=== PATIENT | male | born 1970 | race Caucasian/White ===

== ENCOUNTER 2019-04-05 16:23 | Emergency (ER) | payer BC, OTHER ==
[2019-04-05 16:29] VITALS: BP 170/97; PULSE 95; TEMP 98; BMI 31.3
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
== END 2019-04-05 17:20 | disposition home or self-care (01) ==
LOC: JERFT 16:23
DX: S09.93XA Unspecified injury of face, initial encounter (principal); Y35.811A Legal intervention involving manhandling, law enforcement official injured, initial encounter; Y93.89 Activity, other specified; Y92.89 Other specified places as the place of occurrence of the external cause; Y99.0 Civilian activity done for income or pay
CPT/HCPCS: 99281-25

== ENCOUNTER 2022-03-02 15:15 | Emergency (ER) | payer OTHER ==
[2022-03-02] MEDS ORDERED: IBUPROFEN 600 MG TABLET (FP) PO ONE ×2 (15:42→15:52)
[2022-03-02 15:52] VITALS: BP 136/89; PULSE 85; RESP 18; TEMP 98; BMI 28.1
[2022-03-02] MEDS ORDERED: AMOX TR/POT CLAV 875MG/125MG TABLETS (FP) PO ONE (15:59)
[2022-03-02] MEDS ORDERED: DIPHTH,PERTUSS(ACELL),TET 0.5 ML DISP.SYRIN IM ONE ×2 (15:59→16:01)
[2022-03-02] MEDS ORDERED: AMOX TR/POT CLAV 875MG/125MG TABLETS (FP) ONE (16:01)
== END 2022-03-02 16:10 | disposition home or self-care (01) ==
LOC: FER 15:15
PROC: 3E0234Z Introduction of Serum, Toxoid and Vaccine into Muscle, Percutaneous Approach (ICD-10-PCS; principal; 2022-03-02)
DX: S46.212A Strain of muscle, fascia and tendon of other parts of biceps, left arm, initial encounter (principal); X50.0XXA Overexertion from strenuous movement or load, initial encounter
CPT/HCPCS: 90715; 99284-25

== ENCOUNTER 2022-12-09 04:42 | Emergency (ER) | payer BC, OTHER ==
[2022-12-09 04:50] VITALS: TEMP 98.2; BMI 28.1
[2022-12-09] MEDS ORDERED: SODIUM CHLORIDE 0.9% 500 ML INFUS.BAG IV ONE (05:12)
[2022-12-09 05:57] LABS: BASO % 1.3 % (0-2.0); EOS % 8.7 % (0-4.5); HEMATOCRIT 52.9 % (35.4-49); HEMOGLOBIN 17.4 GM/dL (11.7-16.9); LYMPH % 24.1 % (8-40); MCH 29.7 pg (25.7-33.7); MCHC 32.9 g/dl (32.0-35.9); MEAN CELL VOLUME 90.2 fl (80-96); MEAN PLT VOLUME 9.9 fl (7.5-11.1); MONO % 12.8 % (3.8-10.2); NEUT % 53.1 % (42.8-82.8); PLATELET COUNT 253 10^3/uL (134-434); RBC 5.86 M/mm3 (4.00-5.60); RDW 13.7 % (11.9-15.9); WHITE BLOOD COUNT 7.7 K/mm3 (4.0-10.0)
[2022-12-09 06:18] LABS: POTASSIUM 4.5 mmol/L (3.5-5.1)
[2022-12-09 06:20] LABS: CALCIUM 8.5 mg/dL (8.5-10.1)
[2022-12-09 06:21] LABS: ALBUMIN 3.4 g/dl (3.4-5.0); BLOOD UREA NITROGEN 32.2 mg/dL (7-18)
[2022-12-09 06:24] LABS: CREATININE 0.7 mg/dL (0.55-1.3)
[2022-12-09 06:25] LABS: BILIRUBIN,TOTAL 0.5 mg/dL (0.2-1); TOT PROT 6.3 g/dl (6.4-8.2)
[2022-12-09] MEDS ORDERED: LACTATED RINGERS SOLUTION 1000 ML INFUS.BAG IV ONE ×2 (06:43)
[2022-12-09 07:27] VITALS: BP 135/85; PULSE 71; RESP 18
== END 2022-12-09 09:25 | disposition left against medical advice (07) ==
LOC: JER 04:42
DX: R00.2 Palpitations (principal); R35.0 Frequency of micturition; R63.1 Polydipsia; R07.89 Other chest pain
CPT/HCPCS: 36415; 71046-TC-FY; 80053; 83036; 83735; 84439; 84443; 84484; 85025; 93005; 93010; 99285-25

== ENCOUNTER 2022-12-11 15:55 | Observation (INO) | payer BC ==
[2022-12-11 16:01] VITALS: BMI 29.0
[2022-12-11 17:08] LABS: BASO % 0.8 % (0-2.0); EOS % 5.6 % (0-4.5); HEMATOCRIT 51.4 % (35.4-49); HEMOGLOBIN 17.2 GM/dL (11.7-16.9); LYMPH % 13.8 % (8-40); MCH 29.5 pg (25.7-33.7); MCHC 33.5 g/dl (32.0-35.9); MEAN CELL VOLUME 88.2 fl (80-96); MONO % 10.8 % (3.8-10.2); PLATELET COUNT 246 10^3/uL (134-434); RBC 5.83 M/mm3 (4.00-5.60); RDW 14.1 % (11.9-15.9)
[2022-12-11 17:19] LABS: INR 0.99 (0.83-1.09); PROTHROMBIN TIME (PATIENT) 11.5 SEC (9.7-13.0)
[2022-12-11 17:22] LABS: ACTIVATED PTT 28.7 SECONDS (25.2-36.5)
[2022-12-11] MEDS ORDERED: ASPIRIN COATED 81 MG TABLET.EC PO ONE (17:27)
[2022-12-11] MEDS ORDERED: ASPIRIN 81 MG CHEWABLE TABLETS PO SCH (17:30)
[2022-12-11] MEDS ORDERED: ASPIRIN COATED 81 MG TABLET.EC ONE (17:31)
[2022-12-11 17:32] LABS: POTASSIUM 4.4 mmol/L (3.5-5.1)
[2022-12-11 17:35] LABS: ALBUMIN 3.6 g/dl (3.4-5.0); BLOOD UREA NITROGEN 32.1 mg/dL (7-18); CALCIUM 9.1 mg/dL (8.5-10.1); MAGNESIUM 2.1 mg/dL (1.8-2.4)
[2022-12-11] MEDS ORDERED: PANTOPRAZOLE 40 MG TABLET PO ONE (17:35)
[2022-12-11] MEDS: PANTOPRAZOLE 40 MG TABLET PO SCH (17:36)
[2022-12-11 17:38] LABS: CREATININE 0.8 mg/dL (0.55-1.3)
[2022-12-11 17:40] LABS: BILIRUBIN,TOTAL 0.4 mg/dL (0.2-1); TOT PROT 6.3 g/dl (6.4-8.2)
[2022-12-11 18:30] LABS: PH,URINE 5.5 (5.0-8.0); URINE APPEARANCE CLEAR; URINE BILIRUBIN NEGATIVE (NEGATIVE); URINE COLOR YELLOW; URINE GLUCOSE (UA) NEGATIVE (NEGATIVE); URINE KETONE TRACE (NEGATIVE); URINE LEUK ESTERASE NEGATIVE (NEGATIVE); URINE NITRITE NEGATIVE (NEGATIVE); URINE PROTEIN NEGATIVE (NEGATIVE); URINE UROBILINOGEN 0.2 mg/dL (0.2-1.0)
[2022-12-11] MEDS ORDERED: MELATONIN 5 MG TABLETS PO ONE (20:10)
[2022-12-11] MEDS: HEPARIN NA (PORCINE) 5,000 UNITS/ML 1ML VIAL SQ SCH (21:57)
[2022-12-12 08:13] LABS: BASO % 1.2 % (0-2.0); HEMATOCRIT 52.3 % (35.4-49); HEMOGLOBIN 18.2 GM/dL (11.7-16.9); MCH 30.7 pg (25.7-33.7); MCHC 34.8 g/dl (32.0-35.9); MEAN CELL VOLUME 88.3 fl (80-96); MEAN PLT VOLUME 9.5 fl (7.5-11.1); MONO % 12.4 % (3.8-10.2); NEUT % 57.4 % (42.8-82.8); PLATELET COUNT 240 10^3/uL (134-434); RBC 5.92 M/mm3 (4.00-5.60); RDW 14.3 % (11.9-15.9); WHITE BLOOD COUNT 7.2 K/mm3 (4.0-10.0)
[2022-12-12 08:14] LABS: POTASSIUM 4.6 mmol/L (3.5-5.1)
[2022-12-12 08:19] LABS: CALCIUM 9.1 mg/dL (8.5-10.1)
[2022-12-12 08:21] LABS: ALBUMIN 3.7 g/dl (3.4-5.0); BLOOD UREA NITROGEN 33.8 mg/dL (7-18); CREATININE 0.9 mg/dL (0.55-1.3)
[2022-12-12 08:23] LABS: BILIRUBIN,TOTAL 0.5 mg/dL (0.2-1); TOT PROT 6.7 g/dl (6.4-8.2)
[2022-12-12] MEDS ORDERED: ASPIRIN 81 MG CHEWABLE TABLETS PO SCH (10:00)
[2022-12-12] MEDS: PANTOPRAZOLE 40 MG TABLET PO SCH (13:58)
[2022-12-12] MEDS: HEPARIN NA (PORCINE) 5,000 UNITS/ML 1ML VIAL SQ SCH (13:58)
[2022-12-12 14:32] VITALS: RESP 20
[2022-12-12 17:45] VITALS: BP 136/82; PULSE 73; TEMP 98.8
[2022-12-12] MEDS ORDERED: TEMAZEPAM 15 MG CAPSULE PO ONE (22:00)
== END 2022-12-12 19:19 | disposition home or self-care (01) ==
LOC: JER 15:55 → JERBED 17:03 → J4W 18:08
PROVIDERS: ADMIT Family Medicine; ATTEND Family Medicine
DX: R00.2 Palpitations (principal); R07.9 Chest pain, unspecified; G47.9 Sleep disorder, unspecified; Z79.890 Hormone replacement therapy; I71.20 Thoracic aortic aneurysm, without rupture, unspecified; F41.8 Other specified anxiety disorders
CPT/HCPCS: 0241U-QW; 36415; 71046-TC-FY; 78452-TC; 80053; 80061; 81003; 82728; 83735; 84443; 84484; 85025; 85610; 85730; 93017; 93306-TC; 99285-25; A9502; G0378

== ENCOUNTER 2022-12-14 01:39 | Emergency (ER) | payer BC ==
[2022-12-14 01:46] VITALS: BP 156/89; PULSE 79; RESP 18; TEMP 97.9; BMI 28.1
[2022-12-14] MEDS ORDERED: LORazepam 2 MG TABLET PO ONE (02:05)
[2022-12-14] MEDS ORDERED: MAG HYDROX/AL HYDROX/SIMETH 30 ML UNIT-DOSE CUP PO ONE (02:05)
[2022-12-14] MEDS ORDERED: SIMETHICONE 80 MG TAB.CHEW (FP) PO ONE (02:06)
[2022-12-14] MEDS ORDERED: SIMETHICONE 80 MG TAB.CHEW (FP) ONE (02:12)
[2022-12-14] MEDS ORDERED: LORazepam 0.5 MG TABLET ONE (02:12)
[2022-12-14] MEDS ORDERED: MAG HYDROX/AL HYDROX/SIMETH 30 ML UNIT-DOSE CUP ONE (02:13)
== END 2022-12-14 03:28 | disposition home or self-care (01) ==
LOC: JER 01:39
DX: R07.9 Chest pain, unspecified (principal); R00.2 Palpitations; R14.1 Gas pain; R10.13 Epigastric pain
CPT/HCPCS: 36415; 84484; 93005; 93010; 99284-25

== ENCOUNTER 2022-12-30 02:46 | Emergency (ER) | payer BC ==
[2022-12-30 02:58] VITALS: BP 139/85; PULSE 70; RESP 18; TEMP 98; BMI 28.1
== END 2022-12-30 03:22 | disposition left against medical advice (07) ==
LOC: JER 02:46
DX: R00.2 Palpitations (principal)
CPT/HCPCS: 93005; 93010; 99283-25

== ENCOUNTER 2023-01-04 07:11 | Emergency (ER) | payer OTHER, BC ==
[2023-01-04 07:19] VITALS: RESP 18; BMI 28.1
[2023-01-04 08:32] LABS: BASO % 1.2 % (0-2.0); EOS % 7.9 % (0-4.5); HEMATOCRIT 47.8 % (35.4-49); MCHC 33.4 g/dl (32.0-35.9); MEAN CELL VOLUME 89.7 fl (80-96); MEAN PLT VOLUME 9.4 fl (7.5-11.1); MONO % 10.5 % (3.8-10.2); NEUT % 65.4 % (42.8-82.8); PLATELET COUNT 204 10^3/uL (134-434); RBC 5.33 M/mm3 (4.00-5.60); RDW 14.1 % (11.9-15.9); WHITE BLOOD COUNT 7.9 K/mm3 (4.0-10.0)
[2023-01-04 08:42] LABS: POTASSIUM 3.8 mmol/L (3.5-5.1)
[2023-01-04 08:44] LABS: ALBUMIN 3.3 g/dl (3.4-5.0); BLOOD UREA NITROGEN 27.2 mg/dL (7-18); CALCIUM 8.4 mg/dL (8.5-10.1)
[2023-01-04 08:45] LABS: MAGNESIUM 2.2 mg/dL (1.8-2.4)
[2023-01-04 08:47] LABS: CREATININE 0.9 mg/dL (0.55-1.3)
[2023-01-04 08:49] LABS: BILIRUBIN,TOTAL 0.2 mg/dL (0.2-1); TOT PROT 5.9 g/dl (6.4-8.2)
[2023-01-04 12:46] VITALS: BP 114/75; PULSE 69; TEMP 98.2
== END 2023-01-04 12:54 | disposition home or self-care (01) ==
LOC: JER 07:11
DX: R06.02 Shortness of breath (principal); R00.2 Palpitations; R42 Dizziness and giddiness; R53.1 Weakness
CPT/HCPCS: 36415; 71045-TC-FY; 80053; 83735; 84439; 84443; 84484; 85025; 93005; 93010; 99285-25

== ENCOUNTER 2023-01-20 20:03 | Emergency (ER) | payer OTHER, BC ==
[2023-01-20 20:17] VITALS: PULSE 81; TEMP 98; BMI 29.7
[2023-01-20 21:51] LABS: EOS % 9.5 % (0-4.5); HEMATOCRIT 47.8 % (35.4-49); HEMOGLOBIN 15.9 GM/dL (11.7-16.9); LYMPH % 18.8 % (8-40); MCH 29.3 pg (25.7-33.7); MCHC 33.3 g/dl (32.0-35.9); MEAN CELL VOLUME 87.8 fl (80-96); MEAN PLT VOLUME 9.3 fl (7.5-11.1); MONO % 12.9 % (3.8-10.2); NEUT % 57.8 % (42.8-82.8); PLATELET COUNT 193 10^3/uL (134-434); RBC 5.44 M/mm3 (4.00-5.60); RDW 14.8 % (11.9-15.9); WHITE BLOOD COUNT 7.5 K/mm3 (4.0-10.0)
[2023-01-20 21:58] LABS: INR 0.91 (0.83-1.09); PROTHROMBIN TIME (PATIENT) 10.6 SEC (9.7-13.0)
[2023-01-20 22:01] LABS: ACTIVATED PTT 27.2 SECONDS (25.2-36.5)
[2023-01-20 22:08] LABS: CALCIUM 8.9 mg/dL (8.5-10.1)
[2023-01-20 22:09] LABS: ALBUMIN 3.3 g/dl (3.4-5.0); BLOOD UREA NITROGEN 30.3 mg/dL (7-18)
[2023-01-20 22:12] LABS: CREATININE 0.7 mg/dL (0.55-1.3)
[2023-01-20 22:13] LABS: BILIRUBIN,TOTAL 0.2 mg/dL (0.2-1); TOT PROT 5.7 g/dl (6.4-8.2)
[2023-01-20 23:16] LABS: URINE APPEARANCE CLEAR; URINE BILIRUBIN NEGATIVE (NEGATIVE); URINE COLOR YELLOW; URINE GLUCOSE (UA) NEGATIVE (NEGATIVE); URINE KETONE NEGATIVE (NEGATIVE); URINE LEUK ESTERASE NEGATIVE (NEGATIVE); URINE NITRITE NEGATIVE (NEGATIVE); URINE PROTEIN NEGATIVE (NEGATIVE); URINE UROBILINOGEN 0.2 mg/dL (0.2-1.0)
[2023-01-21 00:01] LABS: MAGNESIUM 2.1 mg/dL (1.8-2.4)
[2023-01-21 00:09] LABS: N-TERMINAL BNP 141.6 pg/ml (5-125)
[2023-01-21] MEDS ORDERED: clonazePAM 0.5 MG TABLET PO ONE (00:42)
[2023-01-21] MEDS ORDERED: clonazePAM 0.5 MG TABLET ONE (01:15)
[2023-01-21 02:40] VITALS: BP 131/75; RESP 18
== END 2023-01-21 05:44 | disposition home or self-care (01) ==
LOC: JER 20:03
DX: R06.02 Shortness of breath (principal); F43.81 Prolonged grief disorder; Z20.822 Contact with and (suspected) exposure to COVID-19
CPT/HCPCS: 0241U-QW; 36415; 71045-TC-FY; 80053; 81003; 83735; 83880; 84484; 85025; 85610; 85730; 86850; 86900; 86901; 87086; 93005; 93010; 93970-TC; 99285-25

== ENCOUNTER 2023-01-22 11:06 | Emergency (ER) | payer OTHER, BC ==
[2023-01-22 11:49] VITALS: BMI 29.7
[2023-01-22 13:38] LABS: BASO % 1.2 % (0-2.0); EOS % 7.2 % (0-4.5); HEMATOCRIT 51.8 % (35.4-49); HEMOGLOBIN 16.4 GM/dL (11.7-16.9); LYMPH % 16.7 % (8-40); MCH 28.4 pg (25.7-33.7); MCHC 31.7 g/dl (32.0-35.9); MEAN CELL VOLUME 89.6 fl (80-96); MEAN PLT VOLUME 9.4 fl (7.5-11.1); MONO % 11.9 % (3.8-10.2); PLATELET COUNT 200 10^3/uL (134-434); RBC 5.79 M/mm3 (4.00-5.60); RDW 14.6 % (11.9-15.9); WHITE BLOOD COUNT 7.9 K/mm3 (4.0-10.0)
[2023-01-22 14:03] LABS: POTASSIUM 4.3 mmol/L (3.5-5.1)
[2023-01-22 14:06] LABS: ALBUMIN 3.5 g/dl (3.4-5.0); BLOOD UREA NITROGEN 19.6 mg/dL (7-18); CALCIUM 9.5 mg/dL (8.5-10.1); MAGNESIUM 2.3 mg/dL (1.8-2.4)
[2023-01-22 14:09] LABS: CREATININE 0.7 mg/dL (0.55-1.3)
[2023-01-22 14:11] LABS: BILIRUBIN,TOTAL 0.6 mg/dL (0.2-1)
[2023-01-22] MEDS ORDERED: SODIUM CHLORIDE 0.9% 500 ML INFUS.BAG IV ONE (14:12)
[2023-01-22 14:40] VITALS: BP 150/95; PULSE 68; RESP 18; TEMP 98.3
[2023-01-22] MEDS ORDERED: clonazePAM 0.5 MG TABLET PO ONE (15:05)
[2023-01-22] MEDS ORDERED: clonazePAM 0.5 MG TABLET ONE (15:09)
[2023-01-22] MEDS ORDERED: ENOXAPARIN NA (PORCINE) 40 MG/0.4 ML DISP.SYRIN SQ SCH (17:30)
[2023-01-23] MEDS ORDERED: METOPROLOL TARTRATE 25 MG TABLET (FP) PO SCH (10:00)
== END 2023-01-22 18:00 | disposition home or self-care (01) ==
LOC: JER 11:06 → JERBED 16:26 → UNDOADMOB 16:26 → JER 18:00
DX: R00.2 Palpitations (principal); R07.9 Chest pain, unspecified; R53.83 Other fatigue; R42 Dizziness and giddiness
CPT/HCPCS: 36415; 80053; 83735; 84443; 84484; 85025; 93005; 93010; 99284-25

== ENCOUNTER 2023-02-21 09:45 | Emergency (ER) | payer BC ==
[2023-02-21] MEDS ORDERED: SODIUM CHLORIDE 0.9% 500 ML INFUS.BAG IV ONE (10:09)
[2023-02-21] MEDS ORDERED: ACETAMINOPHEN 1000 MG/100 ML BAG IVPB ONE (10:09)
[2023-02-21 10:11] VITALS: TEMP 98; BMI 29.7
[2023-02-21] MEDS ORDERED: ACETAMINOPHEN INJECTION 100 ML IVPB ONE (10:33)
[2023-02-21 11:13] LABS: BASO % 0.8 % (0-2.0); EOS % 7.8 % (0-4.5); HEMATOCRIT 45.4 % (35.4-49); HEMOGLOBIN 15.6 GM/dL (11.7-16.9); LYMPH % 18.5 % (8-40); MCH 29.4 pg (25.7-33.7); MCHC 34.5 g/dl (32.0-35.9); MEAN CELL VOLUME 85.3 fl (80-96); MEAN PLT VOLUME 9.1 fl (7.5-11.1); MONO % 11.5 % (3.8-10.2); NEUT % 61.4 % (42.8-82.8); PLATELET COUNT 211 10^3/uL (134-434); RBC 5.32 M/mm3 (4.00-5.60); RDW 14.3 % (11.9-15.9); WHITE BLOOD COUNT 8.7 K/mm3 (4.0-10.0)
[2023-02-21] MEDS ORDERED: FAMOTIDINE 20 MG/50 ML IVPB 20 MG/50 ML MG IVPB ONE ×2 (11:17→11:47)
[2023-02-21] MEDS ORDERED: ONDANSETRON 4 MG/2 ML VIAL IVPUSH ONE (11:17)
[2023-02-21 11:38] LABS: POTASSIUM 4.4 mmol/L (3.5-5.1)
[2023-02-21 11:41] LABS: CALCIUM 9.4 mg/dL (8.5-10.1)
[2023-02-21 11:42] LABS: ALBUMIN 3.4 g/dl (3.4-5.0); BLOOD UREA NITROGEN 19.2 mg/dL (7-18)
[2023-02-21 11:45] LABS: CREATININE 0.6 mg/dL (0.55-1.3)
[2023-02-21 11:46] LABS: BILIRUBIN,TOTAL 0.4 mg/dL (0.2-1); TOT PROT 6.3 g/dl (6.4-8.2)
[2023-02-21] MEDS ORDERED: ONDANSETRON 4 MG/2 ML VIAL ONE (11:47)
[2023-02-21 12:23] LABS: URINE APPEARANCE CLEAR; URINE BILIRUBIN NEGATIVE (NEGATIVE); URINE COLOR DK YELLOW; URINE GLUCOSE (UA) NEGATIVE (NEGATIVE); URINE KETONE NEGATIVE (NEGATIVE); URINE LEUK ESTERASE NEGATIVE (NEGATIVE); URINE NITRITE NEGATIVE (NEGATIVE); URINE PROTEIN NEGATIVE (NEGATIVE); URINE UROBILINOGEN 0.2 mg/dL (0.2-1.0)
[2023-02-21 14:02] VITALS: BP 120/71; PULSE 84; RESP 16
== END 2023-02-21 14:51 | disposition home or self-care (01) ==
LOC: JER 09:45
PROC: 3E033GC Introduction of Other Therapeutic Substance into Peripheral Vein, Percutaneous Approach (ICD-10-PCS; principal; 2023-02-21)
PROC: 3E033GC Introduction of Other Therapeutic Substance into Peripheral Vein, Percutaneous Approach (ICD-10-PCS; 2023-02-21)
PROC: 3E033NZ Introduction of Analgesics, Hypnotics, Sedatives into Peripheral Vein, Percutaneous Approach (ICD-10-PCS; 2023-02-21)
DX: R10.31 Right lower quadrant pain (principal); R10.30 Lower abdominal pain, unspecified; Z20.822 Contact with and (suspected) exposure to COVID-19
CPT/HCPCS: 0241U-QW; 36415; 71045-TC-FY; 74177-TC; 80053; 81003; 83605; 83690; 85025; 87040; 87086; 93005; 93010; 99285-25

== ENCOUNTER 2023-03-26 15:04 | Emergency (ER) | payer BC ==
[2023-03-26 15:40] VITALS: BP 117/58; PULSE 83; RESP 18; TEMP 98.8; BMI 37.5
[2023-03-26 17:00] LABS: HEMATOCRIT 44.9 % (35.4-49); HEMOGLOBIN 15.2 G/dL (11.7-16.9); MCH 30.2 pg (25.7-33.7); MCHC 33.8 g/dl (32.0-35.9); MEAN CELL VOLUME 89.5 fl (80-96); MEAN PLT VOLUME 8.9 fl (7.5-11.1); PLATELET COUNT 249.9 10^3/uL (134-434); RBC 5.02 10^6/uL (4.00-5.60); RDW 15.8 % (11.9-15.9); WHITE BLOOD COUNT 7.8 10^3/uL (4.0-10.8)
[2023-03-26 17:11] LABS: BILIRUBIN,TOTAL 0.3 mg/dl (0.2-1); CALCIUM 9.3 mg/dl (8.5-10.1); CREATININE 0.6 mg/dl (0.6-1.3); POTASSIUM 4.2 mmol/L (3.5-5.1)
[2023-03-26 19:01] LABS: N-TERMINAL BNP 50.3 pg/ml (5-125); PLATELET ESTIMATE ADEQUATE
== END 2023-03-26 19:31 | disposition home or self-care (01) ==
LOC: FER 15:04
DX: R14.0 Abdominal distension (gaseous) (principal); R06.02 Shortness of breath; R42 Dizziness and giddiness; R51.9 Headache, unspecified; R07.9 Chest pain, unspecified; R11.2 Nausea with vomiting, unspecified; M54.50 Low back pain, unspecified; G89.29 Other chronic pain; R63.5 Abnormal weight gain; Z68.37 Body mass index [BMI] 37.0-37.9, adult
CPT/HCPCS: 36415; 71046-TC-FY; 80053; 83605; 83690; 83735; 83880; 84443; 84484; 85027; 93005; 99285-25